=== PATIENT | female | born 1965 | race Caucasian/White ===

== ENCOUNTER 2021-12-08 09:45 | Inpatient (IN) ==
[2021-12-08] MEDS ORDERED: ACETAMINOPHEN 325 MG TAB PO STA (10:30)
--- NOTE | 2021-12-08 10:34 | Emergency Department Note ---
History of Present Illness General Chief complaint: Back Injury/Pain Stated complaint: CHEST PAIN/BACK PAIN/LEG PAIN/THROWING UP Time Seen by Provider: 12/08/21 10:15 Source: patient and family History of Present Illness Provider complaint: Right-sided rib pain Onset (ago): hour(s) Location: chest and right Radiation: back Pain Consistency: + constant Maximum Pain Intensity: 10 Quality: + dull Exacerbated By: + movement Associated symptoms: + chest pain, + cough, + fever/chills, + nausea/vomiting and + shortness of breath; no headaches This is a 56-year-old female who presents with right-sided rib pain upon waking up this morning several hours ago. She stated that the pain is a dull pain. It is located over her ribs on the right side under her breast and going to the back. She describes it as a dull pain and it is worse when she moves around. She did have some associated shortness of breath and a tactile fever. She does complain of a cough and states that this is the exact presentation she had last year when she was diagnosed with a pneumonia. 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 She states that she did not have pain like this with her kidney problems. She does state that she is still under the care of a urologist. She did develop some burning on urination 2 weeks ago and went to an urgent care center and was treated with antibiotics. Her symptoms seem to get better but she recently developed some burning again on urination. She did vomit multiple times this morning. She also notes that she had severe cramping and restlessness in both of her legs this morning. She could not get comfortable. She denies pain like this in the past other than 2 weeks ago when she had it briefly. She denies any swelling to her legs. She has had no loss of taste or smell or diarrhea or abdominal pain. She and her are both vaccinated for COVID-19 and have both had their booster shots. Home Medications Medication Instructions Recorded Confirmed Type omeprazole 20 mg capsule,delayed 20 mg PO DAILY 12/08/21 12/08/21 History release tamsulosin 0.4 mg capsule 0.4 mg PO DAILY 12/08/21 12/08/21 History Allergies Allergy/AdvReac Type Severity Reaction Status Date / Time No Known Allergies Allergy Unknown Verified 07/07/21 13:02 Past Med/Surg History Medical History (Updated 12/08/21 @ 17:00 by Parish Ramirez MD) Calculus of ureter Tobacco use disorder Surgical History (Updated 12/08/21 @ 15:12 by Sally Kang PA-C) History of cholecystectomy History of esophagogastroduodenoscopy (EGD) 08/2021, tortuous esophagus, hiatal hernia History of removal of calculus of renal pelvis through percutaneous nephrostomy Family History (Updated 12/08/21 @ 15:13 by Sally Kang PA-C) Mother Cancer Other Lung cancer Social History (Updated 12/08/21 @ 15:14 by Sally Kang PA-C) Smoking Status: Current every day smoker Tobacco Type: Cigarettes Cigarettes Per Day: 10; Hx Alcohol Use: Yes Alcohol Intake Frequency: Monthly or Less Hx Substance Use: No Preferred Language: Greenlandic Communication Ability: Effective marital status: Current Living Situation: Spouse Feels Safe at Home: Yes Review of Systems See HPI for pertinent positives & negatives. and A total of 10 systems reviewed and were otherwise negative Physical Exam Vital Signs Vital Signs - 24 hr 12/08/21 09:50 12/08/21 11:03 12/08/21 13:45 Temperature 36.7 C Temperature Source Temporal Artery Scan Pulse Rate 121 H Pulse Rate [Apical] 87 Pulse Rhythm [Apical] Regular Respiratory Rate 18 18 Respiratory Effort / Characteristics Non-Labored Respiratory Depth Normal Normal Respiratory Pattern Blood Pressure 135/80 Blood Pressure Mean 98 Pulse Oximetry 97 96 Oxygen Delivery Method Room Air Room Air Room Air Sepsis Recent Fever Within 48 Hours No Sepsis New/Unexplained Change in Mental Status No Sepsis Action Taken by Nursing No Action Required 12/08/21 16:43 Temperature Temperature Source Pulse Rate Pulse Rate [Apical] 86 Pulse Rhythm [Apical] Respiratory Rate Respiratory Effort / Characteristics Respiratory Depth Respiratory Pattern Regular Blood Pressure Blood Pressure Mean Pulse Oximetry Oxygen Delivery Method Room Air Sepsis Recent Fever Within 48 Hours Sepsis New/Unexplained Change in Mental Status Sepsis Action Taken by Nursing Constitutional: Vital signs reviewed. Warm to touch. Repeat temperature is 99.1 F Eyes: Pupils are equal round reactive to light. Conjunctiva are noninjected. ENT: Pharynx is clear without erythema or exudate. Mucous membranes are moist. Neck supple without meningeal signs. Respiratory: Clear to auscultation bilaterally. Breath sounds are equal bilaterally. Cardiovascular: Mild tachycardia. Heart rate 102. GI: Soft, nondistended and nontender. Bowel sounds are present. Musculoskeletal: No peripheral edema. No lower extremity tenderness. Tenderness to the right ribs without crepitus or feel segments. Integumentary: No cyanosis. or jaundice. Neurological: The patient is awake and alert. No focal deficits. Psychiatric: Normal affect. Not anxious appearing. Course Administered Medications Sodium Chloride (Nss 1000ml) 1,000 mls @ 125 mls/hr IV .Q8H RENE Stop: 12/08/21 23:14 Last Admin: 12/08/21 16:42 Dose: 125 mls/hr Documented by: [id number] Discontinued Medications Acetaminophen (Acetaminophen 325 Mg Tab) 650 mg PO NOW STA Stop: 12/08/21 10:31 Last Admin: 12/08/21 11:04 Dose: 650 mg Documented by: [id number] Piperacillin Sod/Tazobactam Sod (Zosyn) 4.5 gm in 120 mls @ 240 mls/hr IV NOW ONE Stop: 12/08/21 14:35 Last Admin: 12/08/21 16:42 Dose: 240 mls/hr Documented by: [id number] Ioversol (Optiray 320 125ml) 120 ml IV ONCE ONE Stop: 12/08/21 12:42 Last Admin: 12/08/21 12:42 Dose: 120 ml Documented by: [id number] Medical Decision Making Differential Diagnosis Pleurisy, pneumonia, bronchitis, rib fracture, rib strain, pulmonary embolism, pyelonephritis Medical Records Attestation: I reviewed the patient's medical records. I did perform a limited focused review of portions of the patient's old chart on the electronic medical record. The patient was seen here in June of last year for chest pain and cold symptoms. She was diagnosed on CT angiogram with a viral pneumonia. She was treated with doxycycline and her Covid test came back negative. Home Medications Current Medication List: was personally reviewed by me Laboratory Data Attestation: I reviewed the patient's lab results. Result diagrams: 12/08/21 10:00 12/08/21 10:00 Lab Results 12/08/21 12/08/21 12/08/21 Range/Units 10:00 10:00 10:00 WBC 14.67 H (4.8-10.8) K/uL RBC 4.78 (4.2-5.4) M/uL Hgb 14.1 (12.0-16.0) g/dL Hct 43.0 (37-47) % MCV 90.0 (80-100) fL MCH 29.5 (25-34) pg MCHC 32.8 (32-36) g/dL RDW Std Deviation 46.3 (36.4-46.3) fL RDW Coeff of John 13.9 (11.5-14.5) % Plt Count 244 (130-400) K/uL MPV 10.0 (7.4-10.4) fL Immature Gran % (Auto) 0.2 % Neut % (Auto) 92.3 % Lymph % (Auto) 3.9 % [place] % (Auto) 3.3 % Eos % (Auto) 0.1 % Baso % (Auto) 0.2 % Neut # (Auto) 13.54 H (1.4-6.5) K/uL Lymph # (Auto) 0.57 L (1.2-3.4) K/uL [place] # (Auto) 0.48 (0.11-0.59) K/uL Eos # (Auto) 0.02 (0-0.5) K/uL Baso # (Auto) 0.03 (0-0.2) K/uL Immature Gran # (Auto) 0.03 H (0.00-0.02) K/uL D-Dimer 1510 H* (0-500) ug/L FEU Sodium 136 (136-145) mmol/L Potassium 3.6 (3.5-5.1) mmol/L Chloride 103 (98-107) mmol/L Carbon Dioxide 25 (21-32) mmol/L Anion Gap 8 (3-11) BUN 15 (6-23) mg/dl Creatinine 0.64 (0.6-1.2) mg/dl Est Cr Clr Drug Dosing 75.8 ml/min Est GFR ( Amer) 114.0 ml/min Est GFR (Non-Af Amer) 98.4 ml/min BUN/Creatinine Ratio 23.4 H (10-20) Glucose 96 (70-99(Fasting)) mg/dl Lactate (0.4-2.0) mmol/L Calcium 8.9 (8.5-10.1) mg/dl Total Bilirubin 0.6 (0.2-1.0) mg/dl AST 16 (13-39) U/L ALT 18 (7-52) U/L Alkaline Phosphatase 94 (34-104) U/L Troponin I < 0.03 (0-0.04) ng/ml Total Protein 6.7 (6.0-8.3) gm/dl Albumin 4.1 (3.4-5.0) gm/dl Globulin 2.6 (2.5-4.0) gm/dl Albumin/Globulin Ratio 1.6 (0.9-2) Lipase (11-82) U/L Procalcitonin (0-0.5) ng/ml Urine Color Urine Appearance (Clear) Urine pH (4.5-7.5) Ur Specific [place] (1.000-1.030) Urine Protein (Negative) Urine Glucose (UA) (Negative) Urine Ketones (Negative) Urine Blood (Negative) Urine Nitrite (Negative) Urine Bilirubin (Negative) Urine Urobilinogen (Negative) Ur Leukocyte Esterase (Negative) SARS-CoV-2 (PCR) (Negative) Influenza Type A (PCR) (Neg) Influ A Molecular Assay (Negative) Influenza Type B (PCR) (Neg) Influ B Molecular Assay (Negative) RSV (RT-PCR) (Neg) SARS-CoV-2, RNA, NAAT (NEGATIVE) 12/08/21 12/08/21 12/08/21 Range/Units 10:00 11:10 11:10 WBC (4.8-10.8) K/uL RBC (4.2-5.4) M/uL Hgb (12.0-16.0) g/dL Hct (37-47) % MCV (80-100) fL MCH (25-34) pg MCHC (32-36) g/dL RDW Std Deviation (36.4-46.3) fL RDW Coeff of John (11.5-14.5) % Plt Count (130-400) K/uL MPV (7.4-10.4) fL Immature Gran % (Auto) % Neut % (Auto) % Lymph % (Auto) % [place] % (Auto) % Eos % (Auto) % Baso % (Auto) % Neut # (Auto) (1.4-6.5) K/uL Lymph # (Auto) (1.2-3.4) K/uL [place] # (Auto) (0.11-0.59) K/uL Eos # (Auto) (0-0.5) K/uL Baso # (Auto) (0-0.2) K/uL Immature Gran # (Auto) (0.00-0.02) K/uL D-Dimer (0-500) ug/L FEU Sodium (136-145) mmol/L Potassium (3.5-5.1) mmol/L Chloride (98-107) mmol/L Carbon Dioxide (21-32) mmol/L Anion Gap (3-11) BUN (6-23) mg/dl Creatinine (0.6-1.2) mg/dl Est Cr Clr Drug Dosing ml/min Est GFR ( Amer) ml/min Est GFR (Non-Af Amer) ml/min BUN/Creatinine Ratio (10-20) Glucose (70-99(Fasting)) mg/dl Lactate (0.4-2.0) mmol/L Calcium (8.5-10.1) mg/dl Total Bilirubin (0.2-1.0) mg/dl AST (13-39) U/L ALT (7-52) U/L Alkaline Phosphatase (34-104) U/L Troponin I (0-0.04) ng/ml Total Protein (6.0-8.3) gm/dl Albumin (3.4-5.0) gm/dl Globulin (2.5-4.0) gm/dl Albumin/Globulin Ratio (0.9-2) Lipase 15 (11-82) U/L Procalcitonin (0-0.5) ng/ml Urine Color Urine Appearance (Clear) Urine pH (4.5-7.5) Ur Specific [place] (1.000-1.030) Urine Protein (Negative) Urine Glucose (UA) (Negative) Urine Ketones (Negative) Urine Blood (Negative) Urine Nitrite (Negative) Urine Bilirubin (Negative) Urine Urobilinogen (Negative) Ur Leukocyte Esterase (Negative) SARS-CoV-2 (PCR) (Negative) Influenza Type A (PCR) (Neg) Influ A Molecular Assay Negative (Negative) Influenza Type B (PCR) (Neg) Influ B Molecular Assay Negative (Negative) RSV (RT-PCR) (Neg) SARS-CoV-2, RNA, NAAT NEGATIVE (NEGATIVE) 12/08/21 12/08/21 12/08/21 Range/Units 11:10 14:40 14:45 WBC (4.8-10.8) K/uL RBC (4.2-5.4) M/uL Hgb (12.0-16.0) g/dL Hct (37-47) % MCV (80-100) fL MCH (25-34) pg MCHC (32-36) g/dL RDW Std Deviation (36.4-46.3) fL RDW Coeff of John (11.5-14.5) % Plt Count (130-400) K/uL MPV (7.4-10.4) fL Immature Gran % (Auto) % Neut % (Auto) % Lymph % (Auto) % [place] % (Auto) % Eos % (Auto) % Baso % (Auto) % Neut # (Auto) (1.4-6.5) K/uL Lymph # (Auto) (1.2-3.4) K/uL [place] # (Auto) (0.11-0.59) K/uL Eos # (Auto) (0-0.5) K/uL Baso # (Auto) (0-0.2) K/uL Immature Gran # (Auto) (0.00-0.02) K/uL D-Dimer (0-500) ug/L FEU Sodium (136-145) mmol/L Potassium (3.5-5.1) mmol/L Chloride (98-107) mmol/L Carbon Dioxide (21-32) mmol/L Anion Gap (3-11) BUN (6-23) mg/dl Creatinine (0.6-1.2) mg/dl Est Cr Clr Drug Dosing ml/min Est GFR ( Amer) ml/min Est GFR (Non-Af Amer) ml/min BUN/Creatinine Ratio (10-20) Glucose (70-99(Fasting)) mg/dl Lactate 1.9 (0.4-2.0) mmol/L Calcium (8.5-10.1) mg/dl Total Bilirubin (0.2-1.0) mg/dl AST (13-39) U/L ALT (7-52) U/L Alkaline Phosphatase (34-104) U/L Troponin I (0-0.04) ng/ml Total Protein (6.0-8.3) gm/dl Albumin (3.4-5.0) gm/dl Globulin (2.5-4.0) gm/dl Albumin/Globulin Ratio (0.9-2) Lipase (11-82) U/L Procalcitonin (0-0.5) ng/ml Urine Color Yellow Urine Appearance Clear (Clear) Urine pH 8.0 H (4.5-7.5) Ur Specific [place] 1.027 (1.000-1.030) Urine Protein Negative (Negative) Urine Glucose (UA) Negative (Negative) Urine Ketones Negative (Negative) Urine Blood Negative (Negative) Urine Nitrite Negative (Negative) Urine Bilirubin Negative (Negative) Urine Urobilinogen Negative (Negative) Ur Leukocyte Esterase Negative (Negative) SARS-CoV-2 (PCR) NEGATIVE (Negative) Influenza Type A (PCR) Negative (Neg) Influ A Molecular Assay (Negative) Influenza Type B (PCR) Negative (Neg) Influ B Molecular Assay (Negative) RSV (RT-PCR) Negative (Neg) SARS-CoV-2, RNA, NAAT (NEGATIVE) 12/08/21 Range/Units 14:45 WBC (4.8-10.8) K/uL RBC (4.2-5.4) M/uL Hgb (12.0-16.0) g/dL Hct (37-47) % MCV (80-100) fL MCH (25-34) pg MCHC (32-36) g/dL RDW Std Deviation (36.4-46.3) fL RDW Coeff of John (11.5-14.5) % Plt Count (130-400) K/uL MPV (7.4-10.4) fL Immature Gran % (Auto) % Neut % (Auto) % Lymph % (Auto) % [place] % (Auto) % Eos % (Auto) % Baso % (Auto) % Neut # (Auto) (1.4-6.5) K/uL Lymph # (Auto) (1.2-3.4) K/uL [place] # (Auto) (0.11-0.59) K/uL Eos # (Auto) (0-0.5) K/uL Baso # (Auto) (0-0.2) K/uL Immature Gran # (Auto) (0.00-0.02) K/uL D-Dimer (0-500) ug/L FEU Sodium (136-145) mmol/L Potassium (3.5-5.1) mmol/L Chloride (98-107) mmol/L Carbon Dioxide (21-32) mmol/L Anion Gap (3-11) BUN (6-23) mg/dl Creatinine (0.6-1.2) mg/dl Est Cr Clr Drug Dosing ml/min Est GFR ( Amer) ml/min Est GFR (Non-Af Amer) ml/min BUN/Creatinine Ratio (10-20) Glucose (70-99(Fasting)) mg/dl Lactate (0.4-2.0) mmol/L Calcium (8.5-10.1) mg/dl Total Bilirubin (0.2-1.0) mg/dl AST (13-39) U/L ALT (7-52) U/L Alkaline Phosphatase (34-104) U/L Troponin I (0-0.04) ng/ml Total Protein (6.0-8.3) gm/dl Albumin (3.4-5.0) gm/dl Globulin (2.5-4.0) gm/dl Albumin/Globulin Ratio (0.9-2) Lipase (11-82) U/L Procalcitonin 3.30 H (0-0.5) ng/ml Urine Color Urine Appearance (Clear) Urine pH (4.5-7.5) Ur Specific [place] (1.000-1.030) Urine Protein (Negative) Urine Glucose (UA) (Negative) Urine Ketones (Negative) Urine Blood (Negative) Urine Nitrite (Negative) Urine Bilirubin (Negative) Urine Urobilinogen (Negative) Ur Leukocyte Esterase (Negative) SARS-CoV-2 (PCR) (Negative) Influenza Type A (PCR) (Neg) Influ A Molecular Assay (Negative) Influenza Type B (PCR) (Neg) Influ B Molecular Assay (Negative) RSV (RT-PCR) (Neg) SARS-CoV-2, RNA, NAAT (NEGATIVE) Imaging Data Radiologist's Impression: Chest CTA 12/08/21 12:04 CT angio chest PE protocol CLINICAL HISTORY: right CP eval for PE TECHNIQUE: Multidetector row helical CT of the chest was performed. Coronal and sagittal reformations were obtained. Coronal and sagittal MIPS were obtained from the axial data set and were submitted for review. Automated dose lowering techniques and/or adjustment according to patient size were utilized for this exam. Comparison: Comparison is made to CTA chest 07/07/2021 FINDINGS: Lungs and pleura: Normal. Heart and pericardium: Extensive groundglass and consolidative opacities are seen most prominent in the left lung. Vessels: No evidence of pulmonary embolism. Mediastinum and yazmin: Unremarkable. Chest wall and lower neck: Unremarkable. Abdomen: Unremarkable. Bones: Unremarkable. IMPRESSION: 1. No evidence of pulmonary embolism. 2. Extensive groundglass and consolidative opacities are compatible with pneumonia. ACT 112: Negative or not required by law. Electronically signed by: Les Delvalle M.D. 12/08/2021 1:05 PM ECG Data Attestation: I personally reviewed and interpreted this ECG as follows: Indication: + SOB/dyspnea Rate (beats per minute): 108 Rhythm: + sinus tachycardia ECG Leonardo: + Normal ECG ST segments: no ST elevation ECG Findings: no PVCs MDM Narrative I did evaluate the patient as noted above. She is presenting with right-sided rib pain starting this morning. She also developed vomiting and shortness of breath. She also complained of leg pain bilaterally which was mostly cramping and restlessness that started with her symptoms. There is no associated swelling. IV access was established. She was placed in respiratory isolation.I did place an order for continuous cardiac monitoring. The monitor showed sinus tachycardia at a rate of 101 bpm. I did order and personally review the patient's 12-lead EKG as described above. There is no evidence of acute ischemia. I did order a urine analysis. There is no evidence of infection. I did order and review the patient's blood work as noted in the electronic medical record. CBC demonstrates a white count of 14.6. She is not anemic. There is no thrombocytopenia. Electrolytes and LFTs are unremarkable. Troponin is negative. Lactate is negative. D-dimer is significantly elevated at 1510. I did discuss this with the patient. She was agreeable to CT scanning of the chest. I did order a CT angiogram of the chest. I did review the images myself as well as the radiology report as described above. She has no evidence of pulmonary embolism but she has bilateral groundglass opacities consistent with pneumonia greater on the left side. I did discuss the test results with the patient. Her Covid test is negative. Her influenza test is also negative. She is vaccinated. She denies any history of immunocompromise or HIV. I did recommend hospitalization for further care and evaluation and IV antibiotics. I did order blood cultures and treat the patient with Zosyn IV. I did discuss the case with the hospitalist and case folder. Impression & Plan Multifocal pneumonia, Dysuria Discharge Plan Visit Data Chief Complaint: Back Injury/Pain Stated Complaint: CHEST PAIN/BACK PAIN/LEG PAIN/THROWING UP ED Provider: Parish Ramirez Discharge Problem: Multifocal pneumonia, Dysuria Patient Disposition: Being Evaluated by Hospitalist Forms Stand Alone Forms: My [facility] Prescriptions Prescriptions: No Action tamsulosin 0.4 mg capsule 0.4 mg PO DAILY RF: 0 omeprazole 20 mg capsule,delayed release(DR/EC) 20 mg PO DAILY RF: 0 Referrals Referrals: Barbie Garcia PA-C [Primary Care Provider] -
[2021-12-08 10:42] LABS: Hemoglobin 14.1 g/dL (12.0-16.0); Mean Corpuscular Hemoglobin 29.5 pg (25-34); Mean Corpuscular Hgb Conc 32.8 g/dL (32-36); Platelet Count 244 K/uL (130-400); RDW Coefficient of Variation 13.9 % (11.5-14.5); RDW Standard Deviation 46.3 fL (36.4-46.3); Red Blood Count 4.78 M/uL (4.2-5.4); White Blood Count 14.67 K/uL (4.8-10.8)
[2021-12-08 10:59] LABS: Basophils # (auto) 0.03 K/uL (0-0.2); Basophils % (auto) 0.2 %; Eosinophils # (auto) 0.02 K/uL (0-0.5); Eosinophils % (auto) 0.1 %; Immature Granulocytes # (auto) 0.03 K/uL (0.00-0.02); Immature Granulocytes % (auto) 0.2 %; Lymphocytes # (auto) 0.57 K/uL (1.2-3.4); Lymphocytes % (auto) 3.9 %; Monocytes # (auto) 0.48 K/uL (0.11-0.59); Monocytes % (auto) 3.3 %; Neutrophils # (auto) 13.54 K/uL (1.4-6.5); Neutrophils % (auto) 92.3 %
[2021-12-08 11:00] LABS: Alanine Aminotransferase 18 U/L (7-52); Albumin Globulin Ratio 1.6 (0.9-2); Albumin Level 4.1 gm/dl (3.4-5.0); Alkaline Phosphatase 94 U/L (34-104); Anion Gap 8 (3-11); Aspartate Aminotransferase 16 U/L (13-39); BUN Creatinine Ratio 23.4 (10-20); Bilirubin,Total 0.6 mg/dl (0.2-1.0); Blood Urea Nitrogen 15 mg/dl (6-23); Calcium 8.9 mg/dl (8.5-10.1); Carbon Dioxide 25 mmol/L (21-32); Chloride 103 mmol/L (98-107); Creatinine Clr Calc Pharmacy 75.8 ml/min; Est GFR (Non-African American) 98.4 ml/min; Globulin 2.6 gm/dl (2.5-4.0); Glucose 96 mg/dl (70-99(Fasting)); Potassium 3.6 mmol/L (3.5-5.1); Sodium 136 mmol/L (136-145); Total Protein 6.7 gm/dl (6.0-8.3)
[2021-12-08 11:01] LABS: Troponin I < 0.03 ng/ml (0-0.04)
[2021-12-08 11:22] LABS: D Dimer 1510 ug/L FEU (0-500)
[2021-12-08 11:42] LABS: Influenza A virus by PCR Negative (Negative); Influenza B virus by PCR Negative (Negative)
[2021-12-08] MEDS ORDERED: OPTIRAY 320 125ml IV ONE (12:41)
--- NOTE | 2021-12-08 13:06 | CT Scan Report ---
CT angio chest PE protocol CLINICAL HISTORY: right CP eval for PE TECHNIQUE: Multidetector row helical CT of the chest was performed. Coronal and sagittal reformations were obtained. Coronal and sagittal MIPS were obtained from the axial data set and were submitted fo r review. Automated dose lowering techniques and/or adjustment according to patient size were utiliz ed for this exam. Comparison: Comparison is made to CTA chest 07/07/2021 FINDINGS: Lungs and pleura: Normal. Heart and pericardium: Extensive groundglass and consolidative opacities are seen most prominent in t he left lung. Vessels: No evidence of pulmonary embolism. Mediastinum and yazmin: Unremarkable. Chest wall and lower neck: Unremarkable. Abdomen: Unremarkable. Bones: Unremarkable. IMPRESSION: 1. No evidence of pulmonary embolism. 2. Extensive groundglass and consolidative opacities are compatible with pneumonia. ACT 112: Negative or not required by law. Electronically signed by: Les Delvalle M.D. 12/08/2021 1:05 PM
[2021-12-08] MEDS ORDERED: PIPERACILLIN/TAZOBACTAM 4.5 GM/120 ML BAG IV ONE (14:06)
[2021-12-08] MEDS ORDERED: PIPERACILL/TAZOBAC CONSULT ACTIVE PRN (14:06)
[2021-12-08 15:05] LABS: Appearance Urine Clear (Clear); Bilirubin Urine Negative (Negative); Blood Urine Negative (Negative); Color Urine Yellow; Glucose Urine UA Negative (Negative); Ketones Urine Negative (Negative); Leukocyte Esterase Urine Negative (Negative); Nitrite Urine Negative (Negative); Protein Urine Negative (Negative); Specific Gravity Urine 1.027 (1.000-1.030); Urobilinogen Urine Negative (Negative)
[2021-12-08] MEDS ORDERED: SODIUM CHLORIDE 0.9% 1000ML 1,000 ML IV SCH (15:15)
--- NOTE | 2021-12-08 15:23 | History & Physical Report ---
Date of Service December 08, 2021 Assessment & Plan (1) Right-sided chest wall pain: (2) Nausea and vomiting: (3) Bilateral pneumonia: (4) Pyelonephritis: Plan: This is a 56-year-old female who has significant past medical history of tobacco abuse disorder, history of nephrolithiasis who presents to ED secondary to acute onset right-sided chest pain, nausea, vomiting and back pain x1 day. R sided chest wall pain Nausea/Vomiting - resolved Bilateral extensive ground glass opacities concerning for Pneumonia admit to med/tele Pt denies prior hx of covid-19, she is fully vaxed but not boosted covid test negative elevated wbc, pt saturating well on room air, no significant cough or resp sx reported obtain procalcitonin continue empiric antibiotics for now low threshold for pulm consult given severity of cta, prior hx of CT in S eptember with opacities but less severe ? if chronic in setting of asp Acute Pyelonephritis pt with R flank pain, dysuria 2 weeks ago UTI sx, UA OP was unremarkable but tx with 3 day course of bactrim sx initially improved but worsened CT a/p pending Hx of nephrolithiasis Chronic mild R hydronephrosis - follows Dr. Walsh of [facility] urology pt with R flank pain, in setting of N/V obtain ct a/p to r/o stone UA not consistent with infection, no blood in urine continue flomax Elevate d -dimer negative for PE obtain b/l doppler r/o DVTS Tobacco abuse encourage smoking cessation Gerd continue PPI ? if severe Gerd is causing pt to aspirate EGD 09/15 + tortuous esophagus and hiatal hernia Concern for sleep apnea reports, "choking in her sleeping waking herself up." pt will need sleep study as outpt DVT ppx: SQ Lovenox Dispo: med tele PCP: Hesham FULL CODE Pt was seen and examined in collaboration with Dr. Mathur, please see addendum History of Present Illness Chief Complaint: Right-sided chest pain, nausea, vomiting and back pain x1 day. Primary Care Provider: Barbie Garcia PA-C This is a 56-year-old female who has significant past medical history of tobacco abuse disorder, history of nephrolithiasis who presents to ED secondary to acute onset right-sided chest pain, nausea, vomiting and back pain x1 day. Patient was awoken at approximately 6 AM with right-sided chest pain. Pain was located under her right breast. Pain did not radiate. It was not made worse with deep inspiration or movement. Nothing made the pain better. It was also associated with nausea and approximately 10-12 episodes of vomiting. Pain resolved at approximately 1030 after receiving acetaminophen. She denies hematemesis. She further complained of pain in her bilateral sacral region with radiation of pain down bilateral legs. She also complains of dysuria. She recalls having similar symptoms back in June when she was diagnosed with pneumonia. At that time she was placed on doxycycline. Her at bedside feels she never completely improved from that episode of pneumonia in June. also reports patient snores at night, "it sounds like she is choking," and this wakes her up. He is concerned maybe she has sleep apnea. He has chronic GERD which for which she takes omeprazole. She has not had any further vomiting while in ED. Of significance patient does have history of nephrolithiasis requiring percutaneous nephrolithotomy in Endo pyelotomy to manage her stones. She follows with [facility] urology. She does chronically have mild right hydronephrosis.Also of significance patient presented to urgent care approximately 2 weeks ago and was diagnosed with urinary tract infection. He was treated with a course of Bactrim however urine culture returned negative for infection. He denies any documented fevers at home, chills, sweats, lightheadedness, dizziness, cough, hemoptysis, shortness of breath at rest, abdominal pain, hematuria, melena, medic easier, increased urgency or frequency with urination. She does have dyspnea on exertion but feels this is unchanged relates this to her chronic smoking history. In ED patient remained hemodynamically stable. She did have mild elevation of her white blood cell count at 14.6 7K. She also had mild left shift. She had elevated D-dimer 1510. Her CMP was generally unremarkable. Her urinalysis was negative for infection. CT of her chest revealed extensive groundglass and consolidative opacities compatible with pneumonia. She was empirically started on IV Zosyn. Allergies Allergy/AdvReac Type Severity Reaction Status Date / Time No Known Allergies Allergy Unknown Verified 07/07/21 13:02 Home Medications Medication Instructions Recorded Confirmed Type omeprazole 20 mg capsule,delayed 20 mg PO DAILY 12/08/21 12/08/21 History release tamsulosin 0.4 mg capsule 0.4 mg PO DAILY 12/08/21 12/08/21 History Past Med/Surg History Medical History Calculus of ureter Tobacco use disorder Surgical History (Updated 12/08/21 @ 15:12 by Sally Kang PA-C) History of cholecystectomy History of esophagogastroduodenoscopy (EGD) 08/2021, tortuous esophagus, hiatal hernia History of removal of calculus of renal pelvis through percutaneous nephrostomy Family History (Updated 12/08/21 @ 15:13 by Sally Kang PA-C) Mother Cancer Other Lung cancer Social History (Updated 12/08/21 @ 15:14 by Sally Kang PA-C) Smoking Status: Current every day smoker Tobacco Type: Cigarettes Cigarettes Per Day: 10; Hx Alcohol Use: Yes Alcohol Intake Frequency: Monthly or Less Hx Substance Use: No Preferred Language: Kinyarwanda Communication Ability: Effective marital status: Current Living Situation: Spouse Feels Safe at Home: Yes Review of Systems Review of Systems: All systems reviewed & are unremarkable except as noted in HPI & below Physical Exam Physical Exam: Constitutional: WD/WN, vitals as above, appears uncomfortable, appears ill, NAD, sitting up in bed, pleasant, conversing easily Head: Normocephalic, Atraumatic Eyes: PERRL, conjunctivae normal, anicteric sclerae ENMT: external ear and nose normal, oropharynx normal Neck: trachea midline, no thyromegaly normal visual inspection Respiratory: normal respiratory effort, lungs clear to auscultation, basilar crackles noted, no wheeze or rhonchi. Normal insp/exp effort, no accessory muscle use Cardiovascular: RRR, no murmur, no edema Vessels: no JVD or carotid bruit Chest: normal inspection of chest Abdomen: normal bowel sounds, soft, nontender, no hepatosplenomegaly, + right CVA tenderness Musculoskeletal: no cyanosis or clubbing, extremities motor strength 5/5 Skin: no rashes, warm and dry normal turgor Neurologic: PERRL, EOMI, accommodation nl, no face palsy, no dysarthria CN's II-XI intact bilaterally and moves all extremities Psychiatric: A+Ox3, euthymic affect Lymphatic: no cervical or axillary lymphadenopathy : deferred Results & Data Results & Data ([facility]) Vital Signs (Past 12 Hours) Vital Signs Temp Pulse Pulse Resp BP Pulse Ox 12/08/21 13:45 87 18 96 12/08/21 09:50 36.7 C 121 H 18 135/80 97 Diagnostic Findings Chest CTA 12/08/21 12:04 CT angio chest PE protocol CLINICAL HISTORY: right CP eval for PE TECHNIQUE: Multidetector row helical CT of the chest was performed. Coronal and sagittal reformations were obtained. Coronal and sagittal MIPS were obtained from the axial data set and were submitted for review. Automated dose lowering techniques and/or adjustment according to patient size were utilized for this exam. Comparison: Comparison is made to CTA chest 07/07/2021 FINDINGS: Lungs and pleura: Normal. Heart and pericardium: Extensive groundglass and consolidative opacities are seen most prominent in the left lung. Vessels: No evidence of pulmonary embolism. Mediastinum and yazmin: Unremarkable. Chest wall and lower neck: Unremarkable. Abdomen: Unremarkable. Bones: Unremarkable. IMPRESSION: 1. No evidence of pulmonary embolism. 2. Extensive groundglass and consolidative opacities are compatible with pne umonia. ACT 112: Negative or not required by law. Electronically signed by: Les Delvalle M.D. 12/08/2021 1:05 PM Medications Administered Medication List Discontinued Medications Acetaminophen (Acetaminophen 325 Mg Tab) 650 mg PO NOW STA Stop: 12/08/21 10:31 Last Admin: 12/08/21 11:04 Dose: 650 mg Documented by: [id number] Ioversol (Optiray 320 125ml) 120 ml IV ONCE ONE Stop: 12/08/21 12:42 Last Admin: 12/08/21 12:42 Dose: 120 ml Documented by: [id number] ECG Rate (beats per minute): 108 Rhythm: sinus tachycardia COVID-19 Results Results COVID-19 Adm Lab Results: RBC 4.78 M/uL (4.2-5.4) 12/08/21 WBC 14.67 K/uL (4.8-10.8) H 12/08/21 Hgb 14.1 g/dL (12.0-16.0) 12/08/21 Hct 43.0 % (37-47) 12/08/21 Plt Count 244 K/uL (130-400) 12/08/21 Neutrophils (%) (Auto) 92.3 % 12/08/21 Lymphocytes (%) (Auto) 3.9 % 12/08/21 Monocytes # (Auto) 0.48 K/uL (0.11-0.59) 12/08/21 Eosinophils # (Auto) 0.02 K/uL (0-0.5) 12/08/21 Immature Granulocyte % (Auto) 0.2 % 12/08/21 Neutrophils # (Auto) 13.54 K/uL (1.4-6.5) H 12/08/21 Lymphocytes # (Auto) 0.57 K/uL (1.2-3.4) L 12/08/21 Monocytes # (Auto) 0.48 K/uL (0.11-0.59) 12/08/21 Eosinophils # (Auto) 0.02 K/uL (0-0.5) 12/08/21 Basophils # (Auto) 0.03 K/uL (0-0.2) 12/08/21 Immature Granulocyte # (Auto) 0.03 K/uL (0.00-0.02) H 12/08/21 Na 136 mmol/L (136-145) 12/08/21 K 3.6 mmol/L (3.5-5.1) 12/08/21 Cl 103 mmol/L (98-107) 12/08/21 CO2 25 mmol/L (21-32) 12/08/21 Anion Gap 8 (3-11) 12/08/21 BUN 15 mg/dl (6-23) 12/08/21 Creatinine 0.64 mg/dl (0.6-1.2) 12/08/21 BUN/Creatinine Ratio 23.4 (10-20) H 12/08/21 Glucose Level 96 mg/dl (70-99(Fasting)) 12/08/21 Ca 8.9 mg/dl (8.5-10.1) 12/08/21 Total Bilirubin 0.6 mg/dl (0.2-1.0) 12/08/21 AST/SGOT 16 U/L (13-39) 12/08/21 ALT/SGPT 18 U/L (7-52) 12/08/21 Alkaline Phosphatase 94 U/L (34-104) 12/08/21 Total Protein 6.7 gm/dl (6.0-8.3) 12/08/21 Albumin 4.1 gm/dl (3.4-5.0) 12/08/21 Globulin 2.6 gm/dl (2.5-4.0) 12/08/21 Albumin/Globulin Ratio 1.6 (0.9-2) 12/08/21 Troponin I < 0.03 ng/ml (0-0.04) 12/08/21 Procalcitonin 3.30 ng/ml (0-0.5) H 12/08/21 D-Dimer 1510 ug/L FEU (0-500) H* 12/08/21 COVID-19 PCR NEGATIVE (Negative) 12/08/21 Influenza Virus Type A (PCR) Negative (Neg) 12/08/21 Influenza Virus Type B (PCR) Negative (Neg) 12/08/21 SARS-CoV-2, RNA, NAAT NEGATIVE (NEGATIVE) 12/08/21 Code Status & VTE Plan Code Status Full Code VTE Prophylaxis Plan VTE Prophylaxis will be ordered: Yes Supervising Physician Co-Signing Physician Notes I have seen and examined the patient and have discussed the case with the provider above. I agree with the assessment and plan as stated with the following exceptions. 56 yo F presented with symptoms above, most importantly was her R flank pain which was present last week. She was given 3 days of Bactrim for a "UTI" and reported feeling better, then worse. She currently reports dysuria and denies fevers or chills but her R flank pain is severe and radiates around to her chest. Procalcitonin is elevated. Cultures are likely falsely negative with an incompletely treated pyelonephritis. She has a h/o nephrolithiasis, however, this is not seen on abdominal imaging. Physical exam reveals a WNWD female in NAD with a soft, nontender abdomen and ++CVA tenderness on the right. Lungs are clear and heart exam is within normal limits. Agree with plans to place her on Rocephin and give her a more prolonged, robust course of antibiotics. Blood cultures are pending. Cont with supportive care as needed. Chest CT also reveals evidence of pneumonia. Cont Rocephin and add azithromycin pending culture results and clinical improvement. DO Kevan
[2021-12-08 16:30] LABS: Influenza A virus by PCR Negative (Neg); Influenza B virus by PCR Negative (Neg); RSV by PCR Negative (Neg); SARS CoV2 RNA(COVID-19) InHosp NEGATIVE (Negative)
[2021-12-08] MEDS ORDERED: PIPERACILLIN/TAZOBACTAM 4.5 GM/120ML D5W IV ONE (16:35)
--- NOTE | 2021-12-08 17:33 | Ultrasound Report ---
US venous doppler LE BI CLINICAL HISTORY: + dimer COMPARISON: None available at the time of this dictation. TECHNIQUE: Bilateral lower extremity real-time compression venous ultrasound with Color Doppler imagi ng. Utilizing real-time ultrasonic imaging multiple real time high-resolution ultrasonic images with comp ression and noncompression maneuvers of the deep venous system in addition to color doppler imaging w ere performed from the common femoral vein through the proximal calf veins. FINDINGS: Currently there is normal compressibility of the deep venous system from the common femoral vein thro ugh the proximal calf veins. No current evidence of acute thrombosis is identified. Impression: No evidence of deep venous thrombus. ACT 112: Negative or not required by law. Electronically signed by: Les Delvalle M.D. 12/08/2021 5:31 PM
--- NOTE | 2021-12-08 17:59 | CT Scan Report ---
CT abd pelvis wo con CLINICAL HISTORY: r flank pain, hx of stones, chronic mild hydro TECHNIQUE: Helical axial images of the abdomen and pelvis were obtained. Automated dose lowering tech niques and/or adjustment according to patient size were utilized for this exam. This exam was perfor med without intravenous contrast. COMPARISON: Comparison is made to CT abdomen pelvis 06/15/2009 FINDINGS: Lower chest: For findings above the diaphragm, please see CT chest performed same day. Liver: Unremarkable. No focal lesions are seen. Gallbladder and biliary tree: Patient is status post cholecystectomy. No intra- or extrahepatic bilia ry ductal dilation. Pancreas: Unremarkable, no focal lesions. Spleen: Unremarkable. Adrenals: Unremarkable. Kidneys and ureters: Unremarkable. Bladder: Limited evaluation due to underdistention. Reproductive organs: Unremarkable. Bowel: Unremarkable appearance of the bowel. The appendix is normal. Lymph nodes Retroperitoneal: Unremarkable. Mesenteric: Unremarkable. Pelvic: Unremarkable. Peritoneum: Normal. Vessels: Atherosclerotic calcifications are seen. Abdominal wall: A fat-containing umbilical hernia is seen. Bones: A bone island is seen in the left acetabulum. IMPRESSION: No acute abnormalities and in particular no evidence of nephrolithiasis or hydronephrosis. ACT 112: Negative or not required by law. Electronically signed by: Les Delvalle M.D. 12/08/2021 5:57 PM
[2021-12-08] MEDS ORDERED: ACETAMINOPHEN 325 MG TAB PO PRN (19:27)
[2021-12-08] MEDS ORDERED: ALUMINUM/MAGNESIUM SUSP 30 ML UDC PO PRN (19:27)
[2021-12-08] MEDS ORDERED: ONDANSETRON INJ 2 MG/ML 2 ML VIAL IV PRN (19:27)
[2021-12-08] MEDS ORDERED: POLYETHYLENE (MIRALAX) 17 GM PACK PO PRN (19:27)
[2021-12-08] MEDS ORDERED: MAGNESIUM HYDROXIDE SUSP 30 ML UDC PO PRN (19:27)
[2021-12-08] MEDS: KETOROLAC TROMETHAMINE 15 MG/ML VIAL IV PRN (22:08)
[2021-12-08] MEDS: cefTRIAXone SODIUM 2,000 MG in DEXTROSE 5% 50 ML IV SCH (22:16)
[2021-12-08] MEDS: ENOXAPARIN INJ 40 MG/0.4 ML SYR SQ SCH (22:17)
[2021-12-08] MEDS: AZITHROMYCIN 500 MG in DEXTROSE 5% 250 ML IV SCH (23:08)
[2021-12-09] MEDS: KETOROLAC TROMETHAMINE 15 MG/ML VIAL IV PRN ×3 (04:28→19:34)
[2021-12-09 08:10] LABS: Basophils # (auto) 0.01 K/uL (0-0.2); Basophils % (auto) 0.1 %; Eosinophils # (auto) 0.11 K/uL (0-0.5); Eosinophils % (auto) 0.7 %; Hematocrit (blood only) 39.1 % (37-47); Hemoglobin 12.8 g/dL (12.0-16.0); Immature Granulocytes # (auto) 0.03 K/uL (0.00-0.02); Immature Granulocytes % (auto) 0.2 %; Lymphocytes # (auto) 2.18 K/uL (1.2-3.4); Lymphocytes % (auto) 13.7 %; Mean Corpuscular Hemoglobin 29.5 pg (25-34); Mean Corpuscular Hgb Conc 32.7 g/dL (32-36); Mean Corpuscular Volume 90.1 fL (80-100); Mean Platelet Volume 10.1 fL (7.4-10.4); Monocytes # (auto) 0.66 K/uL (0.11-0.59); Monocytes % (auto) 4.1 %; Neutrophils # (auto) 12.92 K/uL (1.4-6.5); Neutrophils % (auto) 81.2 %; Platelet Count 220 K/uL (130-400); RDW Standard Deviation 46.3 fL (36.4-46.3); Red Blood Count 4.34 M/uL (4.2-5.4); White Blood Count 15.91 K/uL (4.8-10.8)
[2021-12-09] MEDS: TAMSULOSIN HCL 0.4 MG CAP PO SCH (08:15)
[2021-12-09] MEDS: PANTOprazole 40 MG TAB PO SCH (08:15)
[2021-12-09 08:33] LABS: Albumin Globulin Ratio 1.3 (0.9-2); Albumin Level 3.5 gm/dl (3.4-5.0); BUN Creatinine Ratio 17.9 (10-20); Bilirubin,Total 0.7 mg/dl (0.2-1.0); Calcium 8.9 mg/dl (8.5-10.1); Creatinine Clr Calc Pharmacy 72.2 ml/min; Est GFR (African American) 112.3 ml/min; Est GFR (Non-African American) 96.9 ml/min; Globulin 2.7 gm/dl (2.5-4.0); Magnesium 1.8 mg/dl (1.7-2.4); Potassium 3.8 mmol/L (3.5-5.1); Total Protein 6.2 gm/dl (6.0-8.3)
[2021-12-09] MEDS: cefTRIAXone SODIUM 2,000 MG in DEXTROSE 5% 50 ML IV SCH (20:09)
[2021-12-09] MEDS: ENOXAPARIN INJ 40 MG/0.4 ML SYR SQ SCH (20:10)
[2021-12-09] MEDS: AZITHROMYCIN 500 MG in DEXTROSE 5% 250 ML IV SCH (21:16)
--- NOTE | 2021-12-09 22:17 | Electrocardiogram Report ---
Test Reason : Blood Pressure : / mmHG Vent. Rate : 108 BPM Atrial Rate : 108 BPM P-R Int : 126 ms QRS Dur : 092 ms QT Int : 322 ms P-R-T Axes : 064 023 056 degrees QTc Int : 431 ms Poor data quality, interpretation may be adversely affected Sinus tachycardia Otherwise normal ECG When compared with ECG of 07-JUL-2021 12:17, No significant change was found Confirmed by Anselmo Perez ([id number]) on 12/09/2021 10:17:30 PM Referred By: REFERRED SELF Confirmed By:Anselmo Perez
--- NOTE | 2021-12-10 | Hospitalist Progress Note ---
Date of Service December 09, 2021 Assessment & Plan (1) Right-sided chest wall pain: (2) Nausea and vomiting: (3) Bilateral pneumonia: (4) Pyelonephritis: Plan: This is a 56-year-old female who has significant past medical history of tobacco abuse disorder, history of nephrolithiasis who presents to ED secondary to acute onset right-sided chest pain, nausea, vomiting and back pain x1 day. R sided chest wall pain Pneumonia CTA chest showed no PE. Extensive groundglass and consolidative opacities are compatible with pneumonia. Pt denies prior hx of covid-19, she is fully vaxed but not boosted covid test negative Elevated procalcitonin and WBC 15 K Continue antibiotic with ceftriaxone and Zithromax Blood culture no growth and sputum culture pending Acute Pyelonephritis Complaint R flank pain, dysuria About 2 weeks ago she was treated outpatient for UTI with 3 days course of Bactrim CT abd/pelvis showed no acute abnormalities and in particular no evidence of nephrolithiasis or hydronephrosis. Continue IV antibiotic with ceftriaxone Hx of nephrolithiasis Chronic mild R hydronephrosis - follows Dr. Walsh of [facility] urology continue flomax Will need outpatient follow-up with urology Elevate d -dimer Mostly due to acute illness/infection negative for PE Doppler of lower extremity negative Tobacco abuse Counseling on smoking cessation Gerd continue PPI ? if severe Gerd is causing pt to aspirate EGD 09/15 + tortuous esophagus and hiatal hernia Concern for sleep apnea reports, "choking in her sleeping waking herself up." pt will need sleep study as outpt DVT ppx: SQ Lovenox Dispo: med tele PCP: Hesham FULL CODE Admission and Anticipated Discharge Date Admission Date: December 08, 2021 Subjective Patient was seen and examined for follow-up of right flank pain Sitting in bed with no acute distress talking to her roommate Patient said that she feels much better She said pain is controlled with the pain med She said she feels tender in the mid right side of her back Denies any chest pain, palpitation, dizziness, and fever. Review of Systems Review of Systems: All systems reviewed & are unremarkable except as noted in Subjective Physical Exam Physical Exam: General- No acute distress Head- atraumatic Eyes- PERRL, EOMI, ENT- oropharynx clear Neck- supple, no JVD Lungs- clear to auscultation Heart- regular rhythm; no murmur Abdomen- normal bowel sounds, soft, nontender, + right CVA tenderness Extremities- no calf tenderness Neuro- alert, oriented x 3; PERRL, EOMI; no facial palsy; no dysarthria Skin- warm & dry Results & Data Results & Data ([facility]) Vital Signs (Past 12 Hours) Vital Signs Temp Pulse Pulse Resp BP BP Pulse Ox 12/09/21 23:52 74 12/09/21 22:35 36.5 C 75 18 126/80 97 12/09/21 19:27 12/09/21 19:00 36.9 C 73 18 146/92 H 96 12/09/21 15:29 79 12/09/21 15:22 36.6 C 69 20 136/88 95 Pulse Ox 12/09/21 23:52 12/09/21 22:35 12/09/21 19:27 96 12/09/21 19:00 12/09/21 15:29 12/09/21 15:22
[2021-12-10] MEDS: KETOROLAC TROMETHAMINE 15 MG/ML VIAL IV PRN (03:21)
[2021-12-10 07:53] LABS: Hematocrit (blood only) 39.2 % (37-47); Hemoglobin 13.1 g/dL (12.0-16.0); Mean Corpuscular Hemoglobin 30.4 pg (25-34); Mean Corpuscular Hgb Conc 33.4 g/dL (32-36); Mean Platelet Volume 10.1 fL (7.4-10.4); Platelet Count 242 K/uL (130-400); RDW Standard Deviation 47.4 fL (36.4-46.3); Red Blood Count 4.31 M/uL (4.2-5.4); White Blood Count 7.47 K/uL (4.8-10.8)
[2021-12-10] MEDS: TAMSULOSIN HCL 0.4 MG CAP PO SCH (07:53)
[2021-12-10] MEDS: PANTOprazole 40 MG TAB PO SCH (07:53)
--- NOTE | 2021-12-10 16:59 | Hospitalist Progress Note ---
Date of Service December 10, 2021 Assessment & Plan (1) Right-sided chest wall pain: (2) Nausea and vomiting: (3) Bilateral pneumonia: (4) Pyelonephritis: Plan: This is a 56-year-old female who has significant past medical history of tobacco abuse disorder, history of nephrolithiasis who presents to ED secondary to acute onset right-sided chest pain, nausea, vomiting and back pain x1 day. Bilateral pneumonia CTA chest showed no PE. Extensive groundglass and consolidative opacities are compatible with pneumonia. Pt denies prior hx of covid-19, she is fully vaxed but not boosted covid test negative Elevated procalcitonin and WBC 15 K, now resolved Continue antibiotic with ceftriaxone and Zithromax. Will change to po at discharge once final culture results negative Acute Pyelonephritis Complaint R flank pain, dysuria. Pain improving About 2 weeks ago she was treated outpatient for UTI with 3 days course of Bactrim CT abd/pelvis showed no acute abnormalities and in particular no evidence of nephrolithiasis or hydronephrosis. Continue IV antibiotic with ceftriaxone Hx of nephrolithiasis Chronic mild R hydronephrosis - follows Dr. Walsh of [facility] urology continue flomax Will need outpatient follow-up with urology Elevate d -dimer Mostly due to acute illness/infection negative for PE Doppler of lower extremity negative Tobacco abuse Counseling on smoking cessation Gerd continue PPI ? if severe Gerd is causing pt to aspirate EGD 09/15 + tortuous esophagus and hiatal hernia Concern for sleep apnea reports, "choking in her sleeping waking herself up." pt will need sleep study as outpt DVT ppx: SQ Lovenox Dispo: Discharge today or tomorrow once final culture results negative PCP: Hesham FULL CODE Admission and Anticipated Discharge Date Admission Date: December 08, 2021 Subjective Patient was seen and examined at bedside. Pain controlled, requiring prn pain medication. Feels significantly improved. Asking when she will be discharged. Normal appetite. Ambulating well. Physical Exam Physical Exam: General- Sitting comfortably in bed, no acute distress HEENT- EOMI, KARMEN, MMM Lungs- clear to auscultation, bibasilar rales Heart- regular rhythm and rhythm, normal heart sounds, no murmur Abdomen- normal bowel sounds, soft, nontender, + right CVA tenderness Extremities- no calf tenderness Neuro- alert, oriented x 3; no facial palsy; no dysarthria Skin- warm & dry Results & Data Results & Data ([facility]) Vital Signs (Past 12 Hours) Vital Signs Temp Pulse Pulse Resp BP BP Pulse Ox 12/10/21 16:00 36.9 C 83 18 133/89 95 12/10/21 07:00 36.6 C 72 20 117/69 94 Laboratory Results Short CBC 12/10/21 Range/Units 07:02 WBC 7.47 (4.8-10.8) K/uL Hgb 13.1 (12.0-16.0) g/dL Hct 39.2 (37-47) % Plt Count 242 (130-400) K/uL Diagnostic Findings Reviewed. Medications Administered Current Inpatient Medications Acetaminophen (Acetaminophen 325 Mg Tab) 650 mg PO Q4H PRN PRN Reason: Pain or Fever Stop: 01/07/22 19:26 Last Admin: 12/08/21 19:44 Dose: 650 mg Documented by: Al Hydrox/Mg Hydrox/Simethicone (Aluminum/Magnesium Susp 30 Ml Udc) 15 ml PO Q4H PRN PRN Reason: Dyspepsia Stop: 01/07/22 19:26 Enoxaparin Sodium (Enoxaparin Inj 40 Mg/0.4 Ml Syr) 40 mg SQ Q24H [facility] Stop: 01/07/22 21:59 Last Admin: 12/09/21 20:10 Dose: 40 mg Documented by: Ceftriaxone Sodium 2,000 mg/ (Dextrose) 70 mls @ 100 mls/hr IV Q24H [facility]; Protocol Stop: 12/18/21 19:59 Last Infusion: 12/09/21 21:13 Dose: Infused Documented by: Azithromycin 500 mg/ Dextrose 255 mls @ 125 mls/hr IV Q24H [facility] Stop: 12/15/21 22:59 Last Infusion: 12/09/21 23:30 Dose: Infused Documented by: Ketorolac Tromethamine (Ketorolac Tromethamine 15 Mg/Ml Vial) 15 mg IV Q6H PRN PRN Reason: Pain Stop: 12/13/21 21:32 Last Admin: 12/10/21 03:21 Dose: 15 mg Documented by: Magnesium Hydroxide (Magnesium Hydroxide Susp 30 Ml Udc) 30 ml PO Q12H PRN PRN Reason: Constipation Stop: 01/07/22 19:26 Ondansetron HCl (Ondansetron Inj 2 Mg/Ml 2 Ml Vial) 4 mg IV Q6H PRN PRN Reason: Nausea Stop: 01/07/22 19:26 Last Admin: 12/09/21 00:10 Dose: 4 mg Documented by: Pantoprazole Sodium (Pantoprazole 40 Mg Tab) 40 mg PO DAILY [facility] Stop: 01/08/22 08:59 Last Admin: 12/10/21 07:53 Dose: 40 mg Documented by: Polyethylene Glycol (Polyethylene (Miralax) 17 Gm Pack) 17 gm PO DAILY PRN PRN Reason: Constipation Stop: 01/07/22 19:26 Last Admin: 12/10/21 07:53 Dose: 17 gm Documented by: Tamsulosin HCl (Tamsulosin Hcl 0.4 Mg Cap) 0.4 mg PO DAILY [facility] Stop: 01/08/22 08:59 Last Admin: 12/10/21 07:53 Dose: 0.4 mg Documented by:
[2021-12-10] MEDS ORDERED: AZITHROMYCIN 250 MG TAB PO ONE (17:45)
[2021-12-10] MEDS: cefTRIAXone SODIUM 2,000 MG in DEXTROSE 5% 50 ML IV SCH (18:52)
--- NOTE | 2021-12-10 19:20 | Discharge Summary ---
Date of Service December 10, 2021 Admission HPI Per Admitting Provider This is a 56-year-old female who has significant past medical history of tobacco abuse disorder, history of nephrolithiasis who presents to ED secondary to acute onset right-sided chest pain, nausea, vomiting and back pain x1 day. Patient was awoken at approximately 6 AM with right-sided chest pain. Pain was located under her right breast. Pain did not radiate. It was not made worse with deep inspiration or movement. Nothing made the pain better. It was also associated with nausea and approximately 10-12 episodes of vomiting. Pain resolved at approximately 1030 after receiving acetaminophen. She denies hematemesis. She further complained of pain in her bilateral sacral region with radiation of pain down bilateral legs. She also complains of dysuria. She recalls having similar symptoms back in June when she was diagnosed with pneumonia. At that time she was placed on doxycycline. Her at bedside feels she never completely improved from that episode of pneumonia in June. also reports patient snores at night, "it sounds like she is choking," and this wakes her up. He is concerned maybe she has sleep apnea. He has chronic GERD which for which she takes omeprazole. She has not had any further vomiting while in ED. Of significance patient does have history of nephrolithiasis requiring percutaneous nephrolithotomy in Endo pyelotomy to manage her stones. She follows with [facility] urology. She does chronically have mild right hydronephrosis.Also of significance patient presented to urgent care approximately 2 weeks ago and was diagnosed with urinary tract infection. He was treated with a course of Bactrim however urine culture returned negative for infection. He denies any documented fevers at home, chills, sweats, lightheadedness, dizziness, cough, hemoptysis, shortness of breath at rest, abdominal pain, hematuria, melena, medic easier, increased urgency or frequency with urination. She does have dyspnea on exertion but feels this is unchanged relates this to her chronic smoking history. In ED patient remained hemodynamically stable. She did have mild elevation of her white blood cell count at 14.6 7K. She also had mild left shift. She had elevated D-dimer 1510. Her CMP was generally unremarkable. Her urinalysis was negative for infection. CT of her chest revealed extensive groundglass and consolidative opacities compatible with pneumonia. She was empirically started on IV Zosyn. Principal Diagnosis Bilateral community acquired pneumonia, Right pyelonephritis Discharge Exam General- Sitting comfortably in bed, no acute distress HEENT- EOMI, KARMEN, MMM Lungs- clear to auscultation, bibasilar rales Heart- regular rhythm and rhythm, normal heart sounds, no murmur Abdomen- normal bowel sounds, soft, nontender, + right CVA tenderness Extremities- no calf tenderness Neuro- alert, oriented x 3; no facial palsy; no dysarthria Skin- warm & dry Discharge Data Allergies Allergy/AdvReac Type Severity Reaction Status Date / Time No Known Allergies Allergy Unknown Verified 07/07/21 13:02 Consultations 12/08/21 14:21 ED Decision to Admit Stat Ordered Studies 12/08/21 12:04 CT angio chest PE protocol Stat 12/08/21 14:53 US venous doppler LE BI Stat 12/08/21 15:50 CT abd pelvis wo con Urgent Hospital Course (1) Right-sided chest wall pain: (2) Nausea and vomiting: (3) Bilateral pneumonia: (4) Pyelonephritis: This is a 56-year-old female who has significant past medical history of tobacco abuse disorder, history of nephrolithiasis who presents to ED secondary to acute onset right-sided chest pain, nausea, vomiting and back pain x1 day. Bilateral pneumonia CTA chest showed no PE. Extensive groundglass and consolidative opacities are compatible with pneumonia. Pt denies prior hx of covid-19, she is fully vaxed but not boosted covid test negative Elevated procalcitonin improving and leucocytosis resolved Sputum and blood cultures negative till date saturating well in room air and with ambulation, no respiratory issues Treated with ceftriaxone and Zithromax in house. Changing to vantin and zithromax at discharge to complete antibiotic course Acute Pyelonephritis Complaint R flank pain, dysuria. Pain improving About 2 weeks ago she was treated outpatient for UTI with 3 days course of Bactrim CT abd/pelvis showed no acute abnormalities and in particular no evidence of nephrolithiasis or hydronephrosis. Treated with ceftriaxone- discharging on vantin to complete antibiotic course. Follow up with PCP. Hx of nephrolithiasis Chronic mild R hydronephrosis - follows Dr. Walsh of [facility] urology continue flomax Will need outpatient follow-up with urology Elevate d -dimer Mostly due to acute illness/infection negative for PE Doppler of lower extremity negative Tobacco abuse Counseling on smoking cessation Gerd continue PPI ? if severe Gerd is causing pt to aspirate EGD 09/15 + tortuous esophagus and hiatal hernia Concern for sleep apnea reports, "choking in her sleeping waking herself up." pt will need sleep study as outpt Total Time Total Time Spent Total Time Spent (In Minutes): 45 minutes Discharge Plan Discharge Items Patient Disposition: Home - Self-Care Reason For Visit: NAUSEA, VOMITING, BACK PAIN Discharge Diagnosis: Bilateral pneumonia, Pyelonephritis Activity: Resume your previous activity Non-emergency contact: Primary Care Provider Call non-emergency contact if: you have any medication questions and your symptoms worsen Follow-up/Referrals: Barbie Garcia PA-C [Primary Care Provider] - (Date & Time 12/16/2021 2:20 PM Provider Taryn Dahl Department [facility] ) Diet: Regular Addtl Attending Provider Instructions: follow up with family doctor Pending Studies at Discharge: No Stand-Alone Forms: My [facility], Smoking Cessation Medications and DC Order Prescriptions: New cefpodoxime 200 mg tablet 200 mg PO Q12H Qty: 20 RF: 0 azithromycin 500 mg tablet 500 mg PO DAILY 3 Days Qty: 3 RF: 0 Continued tamsulosin 0.4 mg capsule 0.4 mg PO DAILY RF: 0 omeprazole 20 mg capsule,delayed release(DR/EC) 20 mg PO DAILY RF: 0 Discharge Orders: Discharge Order (Routine); Ordered 12/10/21 Ordered By: Jw Esparza Admission Data Admit Date/Time: 12/08/21 15:00 Attending Provider: Jw Esparza Admit Provider: Anayeli Mathur Primary Care Provider: Barbie Garcia
== END 2021-12-10 20:27 | disposition home or self-care (01) | DRG 194 ==
LOC: ED 09:45 → SUATTDRO 15:00 → 2W 15:00